=== PATIENT | male | born 2000 | race Two or more races ===

== ENCOUNTER 2024-09-06 15:26 | Emergency (ER) | payer OTHER ==
[~2024-09-06] VITALS: Ht 165.1 cm; Wt 74.8 kg
[2024-09-06] MEDS ORDERED: TDAP DIPH,PERTUSS,TET VAC/PF 0.5 ML DISP.SYRIN IM ONE (17:54)
[2024-09-06] MEDS: TDAP DIPH,PERTUSS,TET VAC/PF 0.5 ML DISP.SYRIN IM ONE (17:59)
[2024-09-06] MEDS ORDERED: AMOX-430 PO (18:14)
[2024-09-06] MEDS ORDERED: MUPI22OI2 TP (18:14)
[2024-09-06] MEDS ORDERED: NEOMY/BACITRA/POLYMYXIN B OINT UD PACKET TP ONE (18:18)
[2024-09-06] MEDS: NEOMY/BACITRA/POLYMYXIN B OINT UD PACKET TP ONE (18:22)
[2024-09-06 18:25] VITALS: BP 112/67; TEMP 98.4; O2SAT 99
== END 2024-09-06 18:25 | disposition home or self-care (01) ==
LOC: ER 15:26
DX: S51.832A Puncture wound without foreign body of left forearm, initial encounter (principal); W54.0XXA Bitten by dog, initial encounter; Y93.89 Activity, other specified; Y92.89 Other specified places as the place of occurrence of the external cause; Y99.8 Other external cause status
CPT/HCPCS: 73090; 90715; A4606; A4663